=== PATIENT | male | born 2000 | race Hispanic/Latino ===

== ENCOUNTER 2022-10-13 17:47 | Emergency (ER) | payer OTHER ==
[2022-10-13] MEDS ORDERED: Dexamethasone 10 MG/ML VIAL ONE (18:29)
== END 2022-10-13 18:33 | disposition home or self-care (01) ==
LOC: CSHERS 17:47
DX: J02.9 Acute pharyngitis, unspecified (principal); F17.290 Nicotine dependence, other tobacco product, uncomplicated
CPT/HCPCS: 99283; J1100

== ENCOUNTER 2023-05-03 11:23 | Emergency (ER) | payer OTHER ==
[2023-05-03] MEDS ORDERED: Ondansetron PF 4 MG/2 ML Vial ONE (12:18)
[2023-05-03] MEDS ORDERED: Dicyclomine 20 MG/2 ML VIAL ONE (12:18)
[2023-05-03 12:28] LABS: #Eosinphils 0.2 10x3/uL (0.0-0.5); #Monocytes 0.7 10x3/uL (0.0-1.1); #Neutrophils 5.2 10x3/uL (1.5-8.4); %Basophils 0.4 % (0.0-2.0); %Eosinophils 3.1 % (0.0-6.0); %Lymphocytes 17.5 % (18.0-47.0); %Monocytes 8.8 % (0.0-10.0); %Neutrophils 69.7 % (40.0-75.0); Hematocrit 47.8 % (38.8-50.0); Hemoglobin 16.4 g/dL (13.5-17.5); Mean Corpuscular HGB CONC 34.3 g/dL (32.0-36.0); Mean Corpuscular Volume 93.2 fl (81.2-95.1); Mean Platelet Volume 9.8 fl (7.4-10.4); Platelet Count 218 10x3/uL (150-450); Red Blood Cell (RBC) Count 5.13 10x6/uL (4.32-5.72); White Blood Cell (WBC) Count 7.5 10x3/uL (3.5-10.5)
[2023-05-03 12:54] LABS: ALT (SGPT) 22 U/L (8-55); AST (SGOT) 22 U/L (5-34); Albumin 4.1 g/dL (3.5-5.0); Alkaline Phosphatase 84 U/L (40-110); Anion Gap 13 mmol/L (10-20); BUN (Urea Nitrogen) 12 mg/dL (8.9-20.6); Bilirubin, Total 0.4 mg/dL (0.2-1.2); Calc. Creatinine Clearance 0 mL/min (70-130); Calcium 9.2 mg/dL (7.8-10.44); Carbon Dioxide 20 mmol/L (22-29); Chloride 105 mmol/L (98-107); Estimated GFR 125; Globulin 3.3 g/dL (2.4-3.5); Glucose 93 mg/dL (70-105); Lipase 5 U/L (8-78); Potassium 3.8 mmol/L (3.5-5.1); Protein, Total 7.4 g/dL (6.0-8.3); Sodium 134 mmol/L (136-145)
== END 2023-05-03 15:20 | disposition home or self-care (01) ==
LOC: CSHERS 11:23
DX: K52.9 Noninfective gastroenteritis and colitis, unspecified (principal); F17.290 Nicotine dependence, other tobacco product, uncomplicated
CPT/HCPCS: 36415; 80053; 83690; 85025; 96372; 96374; J2405

== ENCOUNTER 2023-12-19 20:03 | Emergency (ER) | payer BC | END 2023-12-19 22:29 | disposition home or self-care (01) | LOC: CSHERS 20:03 | DX: R19.7 Diarrhea, unspecified (principal); R30.0 Dysuria; F17.290 Nicotine dependence, other tobacco product, uncomplicated | CPT/HCPCS: 80053; 81001; 82550; 83690; 85025; 87086; 87491; 87591; 99284 ==

== ENCOUNTER 2024-03-16 17:53 | Emergency (ER) | payer BC ==
[2024-03-16] MEDS ORDERED: Ibuprofen 200 MG TAB ONE (19:18)
== END 2024-03-16 19:46 | disposition home or self-care (01) ==
LOC: CSHERS 17:53
DX: S46.021A Laceration of muscle(s) and tendon(s) of the rotator cuff of right shoulder, initial encounter (principal); F17.290 Nicotine dependence, other tobacco product, uncomplicated; X50.0XXA Overexertion from strenuous movement or load, initial encounter
CPT/HCPCS: 99283

== ENCOUNTER → 2024-04-11 | Emergency (ER) | payer BC ==
[2024-04-11 23:22] LABS: Bilirubin Neg (Negative); Blood, Urine Negative (Negative); Clarity Clear (Clear); Glucose, Urine (Dipstick) Normal (Negative); Ketone, Urine Negative (Negative); Leukocyte Negative (Negative); Nitrite Negative (Negative); Protein, Urine (Dipstick) 15 mg/dl (Neg-Trace); Urobilinogen Normal mg/dL (Less than 2)
[2024-04-11 23:42] LABS: Bacteria/HPF 1+ HPF (None Seen); CAUTI Indications for Culture Dysuria,urgency,freq; Mucous/LPF Rare LPF (<2+); RBC/HPF 0-3 HPF (0-3); Squamous Epithelial None Seen HPF (0-3); WBC/HPF 0-3 HPF (0-3)
[2024-04-11 23:43] LABS: Urine Culture Reflex No No
[2024-04-12 22:23] LABS: Chlam.trachomatis by PCR,Urine Not Detected (NotDetected); GC N.gonorrhoeae PCR,UrineVOID Not Detected (NotDetected)
== END ==
LOC: CSHERS 22:54
DX: Z53.21 Procedure and treatment not carried out due to patient leaving prior to being seen by health care provider (principal)
CPT/HCPCS: 81001; 87491; 87591

== ENCOUNTER 2024-04-14 10:55 | Emergency (ER) | payer BC, OTHER | END 2024-04-14 13:20 | disposition home or self-care (01) | LOC: CSHERS 10:55 | DX: J02.8 Acute pharyngitis due to other specified organisms (principal); B97.89 Other viral agents as the cause of diseases classified elsewhere; F17.290 Nicotine dependence, other tobacco product, uncomplicated | CPT/HCPCS: 87081; 87428; 87430; 99283 ==

== ENCOUNTER 2024-07-18 00:48 | Emergency (ER) | payer BC, OTHER | END 2024-07-18 02:22 | disposition home or self-care (01) | LOC: CSHERS 00:48 | DX: J11.1 Influenza due to unidentified influenza virus with other respiratory manifestations (principal); F17.290 Nicotine dependence, other tobacco product, uncomplicated | CPT/HCPCS: 87428; 99283 ==